=== PATIENT | female | born 1940 | race Caucasian/White ===

== ENCOUNTER → 2016-12-03 | Day surgery (SDC) | payer OTHER ==
[~2016-12-03] MED LIST: BUPIVACAINE HCL PF 0.75% 30 ML VIAL ONE; LACTATED RINGER'S 1000 ML INJ 1,000 ML ONE; LIDOCAINE 1.5%/EPINEPHrine 1:200,000 PF SOLN 30 ML AMP ONE; MIDAZOLAM HCL 5 MG/ML VIAL (1 ML) ONE; ONDANSETRON HCL 4 MG/2 ML VIAL IV PUSH ONE; PROPOFOL 100 MG/10 ML INJ IV ONE; ceFAZolin 2 GM PREMIX 50 ML ONE
--- NOTE | 2016-12-07 17:06 | MP ---
cc: AZUL TOVAR M.D. DATE OF SURGERY: 12/03/2016 PREOPERATIVE DIAGNOSIS: Right shoulder rotator cuff tear, impingement syndrome. POSTOPERATIVE DIAGNOSES Right shoulder labral tear. PROCEDURE Right shoulder arthroscopic rotator cuff repair, right shoulder arthroscopic subacromial decompression, right shoulder arthroscopic extensive debridement labral tear. SURGEON Dr. Azul Tovar BOTTLE DEALER: BRANDON Collier ANESTHESIA General with interscalene block. REVIEW OF SYSTEMS Less than 10 cc COMPLICATIONS None. IMPLANTS: Arthrex. JUSTIFICATION: The patient is a 76 year-old female who injured the right shoulder. She presented with progressive pain, weakness in regards to her condition. She has failed conservative treatment. Clinical exam as well as MRI confirmed the above-named findings. The patient was counseled as to the risks, benefits, alternatives to the above named surgical procedure. She did wish to proceed with surgery. PROCEDURE IN DETAIL: Written consent was obtained. The patient identified by name, taken to the operating room, placed in supine position, general anesthesia was administered as well as 2 grams of IV Ancef. She did receive preoperative interscalene block. The patient was carefully turned to the left lateral decubitus position. Lateral arm roll was placed. All bony prominences and pressure points were well-padded. The patient's neck was carefully monitored and keep neutral. An arthroscopic arm colin was gently applied to the right upper extremity with 10 pounds of traction placed. The right shoulder prepped and draped using as isopropyl alcohol, Hibiclens solution and DuraPrep solution. Standard posterior and anterior glenohumeral arthroscope portal was placed. Glenohumeral joint revealed evidence of extensive labral tearing on the anterior superior, posterior portion. An arthroscope portal was established to the rotator interval and an extensive debridement of the labrum was performed. The labrum was debrided from the 3 o'clock position to the 12 o'clock position, back down to the 9 o'clock position. There was evidence of massive rotator cuff tear as visualized from the glenohumeral joint. Attention was turned to subacromial space. There was evidence of significant impingement. A subacromial decompression was performed. The shaver was used to perform acromioplasty. The cautery device used to release coracoacromial ligament. The bur was used to decorticate the greater tuberosity in preparation for the rotator cuff tendon repair. Two Arthrex 4.75 mm Bio-SwiveLock Anchors were inserted along the medial row. An Arthrex Scorpion device was used to shuttle a #2 fiber tape suture through and anterior and posterior portion of the torn tendon. From each anchor a #2 FiberLink suture was placed along the far anterior and far posterior portion. An Arthrex double row SpeedBridge construct was then created with implantation of a posterolateral lateral anchor and anterolateral anchor, after appropriate tensioning of sutures and implantation of lateral anchors, the repair was probed and noted to have good stability and fixation. The arthroscope portals closed with 3-0 Prolene suture. Sterile dressing applied. The patient was placed in a sling and swath immobilizer. She tolerated the procedure well with no intraoperative his noted. Mirza Conroy, Physician Tear Down Man Certified, was present during the entire procedure to include patient positioning and the procedure itself. The medical necessity of Physician Tear Down Man was indicated in this case due to the complexity of the procedure itself. He assisted with appropriate manipulation of the arm and also manipulation of the camera. He also assisted with shuttling of sutures and insertion of anchor for appropriate rotator cuff repair. MD MAU Jett/CITLALI /8:23 AM /4:26 PM
== END | disposition home or self-care (01) ==
LOC: ESDC 06:04
PROVIDERS: ATTEND Orthopaedic Surgery Sports Medicine
DX: M75.121 Complete rotator cuff tear or rupture of right shoulder, not specified as traumatic (principal); M75.41 Impingement syndrome of right shoulder; S43.401A Unspecified sprain of right shoulder joint, initial encounter
CPT/HCPCS: 01630; 01991; 29823; 29826; 29827; 64417; C1713; J0690; J2250; J2405; J7120